=== PATIENT | male | born 1995 | race Caucasian/White ===

== ENCOUNTER 2019-01-09 14:32 | Outpatient (CLI) | payer OTHER | END 2019-01-09 14:33 | disposition EMS.NT | LOC: EMS 14:32 | PROVIDERS: ATTEND Surgery | DX: R53.1 Weakness (principal); R42 Dizziness and giddiness ==

== ENCOUNTER 2019-01-09 15:20 | Emergency (ER) | payer OTHER ==
[2019-01-09] MEDS ORDERED: SODIUM CHLORIDE 0.9% 1,000 ML IV ONE (15:27)
--- NOTE | 2019-01-09 15:29 | ED Physician Documentation ---
PD HPI SYNCOPE - Stated complaint Stated Complaint: LIGHT HEADED - History obtained from History obtained from: Patient - History of Present Illness Witnessed: Witnessed (23-year-old gentleman, otherwise healthy and active duty in the [employer]. He got a flu shot this morning, but otherwise it was normal more. A couple of hours later he was starting to feel dizzy and nauseous. He nearly passed out developed tunnel vision. Paramedics were summoned and they did note a blood pressure of 74/34 which was better after 500 mL of normal saline in route. He feels fine now. No chest pain, no trouble breathing no, pedal edema, no recent travel.) Review of Systems Constitutional: denies: Fever, Chills, Fatigue Cardiac: denies: Chest pain / pressure, Palpitations Respiratory: denies: Dyspnea, Cough GI: reports: Nausea (gone). denies: Diarrhea, Bloody / black stool PD PAST MEDICAL HISTORY - Allergies Allergies/Adverse Reactions: Allergies Allergy/AdvReac Type Severity Reaction Status Date / Time No Known Drug Allergies Allergy Verified 01/09/19 15:40 PD ED PE NORMAL - Vitals Vital signs reviewed: Yes - General General: Alert and oriented X 3, No acute distress - HEENT HEENT: PERRL, EOMI - Neck Neck: Supple, no meningeal sign, No bony TTP - Cardiac Cardiac: RRR, No murmur - Respiratory Respiratory: No respiratory distress, Clear bilaterally - Abdomen Abdomen: Non tender - Extremities Extremities: No edema, No calf tenderness / cord - Neuro Neuro: Alert and oriented X 3, Normal speech Results - Vitals Vitals: Vital Signs - 24 hr 01/09/19 01/09/19 01/09/19 15:33 16:23 16:59 Temperature 98.3 C H Heart Rate 69 84 Heart Rate [ 88 Sitting] Heart Rate [ 82 Standing] Heart Rate [ 88 Supine] Respiratory 16 16 Rate Blood Pressure 118/74 117/67 Blood Pressure 116/64 [Sitting] Blood Pressure 117/66 [Standing] Blood Pressure 116/64 [Supine] O2 Saturation 100 100 Oxygen O2 Source Room air - EKG (time done) 1544 Rate: Rate (enter#) (75) Rhythm: NSR [place]: Normal Intervals: Normal [place] QRS: Normal Ischemia: ST elevation c/w repol Computer interpretation: Agree with computer - Labs Labs: Laboratory Tests 01/09/19 01/09/19 01/09/19 15:35 15:35 15:35 WBC 10.1 RBC 4.64 L Hgb 13.6 L Hct 40.1 L MCV 86.4 MCH 29.3 MCHC 33.9 RDW 12.1 Plt Count 167 MPV 10.8 Neut # (Auto) 9.2 H Lymph # (Auto) 0.5 L [place] # (Auto) 0.3 Eos # (Auto) 0.1 Baso # (Auto) 0.0 Absolute Nucleated RBC 0.00 Nucleated RBC % 0.0 Sodium 137 Potassium 3.7 Chloride 103 Carbon Dioxide 27 Anion Gap 7.0 BUN 19 Creatinine 0.9 Estimated GFR (MDRD) 106 Glucose 109 H Lactic Acid 1.4 Calcium 9.1 Total Bilirubin 0.7 AST 25 ALT 27 Alkaline Phosphatase 56 Total Protein 6.8 Albumin 4.1 Globulin 2.7 Albumin/Globulin Ratio 1.5 Lipase 30 PD MEDICAL DECISION MAKING - ED course ED course: 23-year-old gentleman with a presyncopal episode this morning. He was hypotensive but is not now. No pertinent positive findings on work-up, negative orthostatics after IV fluids. Departure - Departure Disposition: Home, Self Care Clinical Impression: Pre-syncope, Transient hypotension Condition: Good Record reviewed to determine appropriate education?: Yes Instructions: ED Near Syncope Vasovagal Comments: Rest tonight and take it easy, return for new or worsening symptoms. Drink plenty of fluids. [place]
[2019-01-09 15:43] LABS: BASOPHILS % (AUTO) 0.2 %; EOSINOPHILS # (AUTO) 0.1 10^3/uL (0.0-0.7); EOSINOPHILS % (AUTO) 0.7 %; HGB - HEMOGLOBIN 13.6 g/dL (14.0-18.0); LYMPHOCYTES # (AUTO) 0.5 10^3/uL (1.5-3.5); LYMPHOCYTES % (AUTO) 4.8 %; MEAN CORPUSCULAR HEMOGLOBIN 29.3 pg (27.0-31.0); MEAN CORPUSCULAR HGB CONC 33.9 g/dL (32.0-36.0); MEAN CORPUSCULAR VOLUME 86.4 fL (80.0-94.0); MEAN PLATELET VOLUME 10.8 fL (7.4-11.4); MONOCYTES # (AUTO) 0.3 10^3/uL (0.0-1.0); MONOCYTES % (AUTO) 2.9 %; NEUTROPHILS # (AUTO) 9.2 10^3/uL (1.5-6.6); NEUTROPHILS % (AUTO) 90.8 %; PLT - PLATELET COUNT 167 10^3/uL (130-450); RED BLOOD COUNT 4.64 10^6/uL (4.70-6.10); RED CELL DISTRIBUTION WIDTH 12.1 % (12.0-15.0); WHITE BLOOD COUNT 10.1 x10^3/uL (4.8-10.8)
[2019-01-09 15:50] LABS: ALBUMIN 4.1 g/dL (3.2-5.5); ALBUMIN/GLOBULIN RATIO 1.5 (1.0-2.2); BILIRUBIN,TOTAL 0.7 mg/dL (0.2-1.0); CALCIUM 9.1 mg/dL (8.5-10.3); CREATININE 0.9 mg/dL (0.6-1.2); TOTAL PROTEIN 6.8 g/dL (6.7-8.2)
[2019-01-09 16:59] VITALS: BP 116/64
[2019-01-09 17:49] LABS: BILIRUBIN,URINE NEGATIVE (NEGATIVE); GLUCOSE, URINE (UA) NEGATIVE (NEGATIVE); KETONES,URINE (UA) NEGATIVE (NEGATIVE); LEUKOCYTE ESTERASE, URINE NEGATIVE (NEGATIVE); NITRITE,URINE NEGATIVE (NEGATIVE); OCCULT BLOOD,URINE NEGATIVE (NEGATIVE); PROTEIN,URINE NEGATIVE (NEGATIVE); UROBILINOGEN,URINE 0.2 (NORMAL) E.U./dL (NORMAL)
[2019-01-09 17:50] LABS: CLARITY,URINE HAZY (CLEAR)
[2019-01-09 18:00] LABS: AMORPHOUS SEDIMENT,UR Few /LPF; BACTERIA,URINE Rare /HPF (None Seen); RBC,URINE 0-5 /HPF (0-5); SQUAMOUS EPITHELIAL CELL,UR NONE SEEN (<= Few)
[2019-01-09 18:01] LABS: CASTS, URINE 3-5 Hyaline Casts /LPF
== END 2019-01-09 17:44 | disposition home or self-care (01) ==
LOC: ED 15:20
DX: I95.89 Other hypotension (principal); R55 Syncope and collapse
CPT/HCPCS: 36415; 80053; 81001; 81003; 83605; 83690; 85025; 87086; 93005; 99284

== ENCOUNTER 2019-10-14 09:07 | Emergency (ER) | payer OTHER ==
--- NOTE | 2019-10-14 10:05 | XRAY Report ---
PROCEDURE: Foot 3 View RT INDICATIONS: injury TECHNIQUE: 3 views of the foot were acquired. COMPARISON: None FINDINGS: Bones: No fractures or dislocations. No suspicious bony lesions. Soft tissues: No tibiotalar joint effusion. Achilles tendon appears normal. IMPRESSION: No definite fracture however follow-up radiographs in 10 days could be performed if the patient's sym ptoms do not improve to exclude occult fracture/assess for healing sclerosis. Reviewed by: Fawad Craft MD on 10/14/2019 10:04 AM PDT Approved by: Fawad Craft MD on 10/14/2019 10:04 AM PDT Station ID: [id number]
--- NOTE | 2019-10-14 10:29 | ED Physician Documentation ---
PD HPI LOWER EXT INJURY - Stated complaint Stated Complaint: R FOOT PX - Chief complaint Chief Complaint: Trauma Ext - History obtained from History obtained from: Patient - History of Present Illness PD HPI LOW EXT INJURY LOCATION: Right, Toe (2nd) Type of injury: Other (bent on a stair) Where injury occurred: Home Timing - onset: How many days ago (2) Timing - duration: Days (2) Timing - details: Abrupt onset Pain level max: 5 Pain level now: 1 Improved by: Rest Worsened by: Moving, Palpating Associated symptoms: Swelling, Discolored (bruising). No: Weakness, Numbness, Tingling - Additional information Additional information: Patient tripped on a stair and bent his toe backwards. Bruising today. Sent by [employer] Review of Systems Constitutional: denies: Fever Musculoskeletal: denies: Neck pain, Back pain Neurologic: denies: Head injury PD PAST MEDICAL HISTORY - Past Medical History Past Medical History: No Cardiovascular: None Respiratory: None Neuro: None GI: None : None HEENT: None Psych: None Musculoskeletal: None - Past Surgical History Past Surgical History: Yes General: Other - Present Medications Home Medications: Ambulatory Orders Medication Instructions Recorded Confirmed No Known Home Medications 10/14/19 10/14/19 - Allergies Allergies/Adverse Reactions: Allergies Allergy/AdvReac Type Severity Reaction Status Date / Time No Known Drug Allergies Allergy Verified 01/09/19 15:40 - Social History Does the pt smoke?: No Smoking Status: Never smoker Does the pt have substance abuse?: No - Immunizations Immunizations are current?: Yes - POLST Patient has POLST: No PD ED PE NORMAL - Vitals Vital signs reviewed: Yes - General General: Alert and oriented X 3, No acute distress - Derm Derm: Warm and dry - Extremities Extremities: Other (Ecchymosis and swelling to the right foot, second toe. Minimal tenderness. Neurovascular intact. Normal nail) - Neuro Neuro: Alert and oriented X 3 Results - Vitals Vitals: Vital Signs - 24 hr 10/14/19 10/14/19 09:34 10:35 Temperature 36.8 C Heart Rate 55 L 52 L Respiratory 16 18 Rate Blood Pressure 116/78 111/78 O2 Saturation 100 99 Oxygen O2 Source Room air - Rads (name of study) Right foot x-ray Radiology: Prelim report reviewed, EMP read contemporaneously, See rad report (Normal) PD MEDICAL DECISION MAKING - ED course Complexity details: reviewed results, considered differential, d/w patient ED course: No acute findings on x-ray. We will treat as a toe sprain. Patient declines hailey taping or a hard soled shoe. Patient counseled regarding signs and symptoms for which I believe and urgent re-evaluation would be necessary. Patient with good understanding of and agreement to plan and is comfortable going home at this time This document was made in part using voice recognition software. While efforts are made to proofread this document, sound alike and grammatical errors may occur. Departure - Departure Disposition: Home, Self Care Clinical Impression: Sprain of toe Qualifiers: Encounter type: initial encounter Qualified Code(s): S93.509A - Unspecified sprain of unspecified toe(s), initial encounter Condition: Good Instructions: ED Sprain Toe Follow-Up: Your,doctor in 1 week [Other] Comments: Your x-rays do not show any acute fractures. You can bear weight as tolerated. Follow-up with your doctor for further care. Discharge Date/Time: 10/14/19 10:48
[2019-10-14 10:36] VITALS: BP 111/78
== END 2019-10-14 10:48 | disposition home or self-care (01) ==
LOC: ED 09:07
DX: S93.504A Unspecified sprain of right lesser toe(s), initial encounter (principal); S90.121A Contusion of right lesser toe(s) without damage to nail, initial encounter; X50.1XXA Overexertion from prolonged static or awkward postures, initial encounter; Y93.01 Activity, walking, marching and hiking
CPT/HCPCS: 99283

== ENCOUNTER 2020-10-21 16:44 | Emergency (ER) | payer OTHER ==
--- NOTE | 2020-10-21 17:34 | ED Physician Documentation ---
PD HPI UPPER EXT INJURY - Stated complaint Stated Complaint: LT ARM INJ - Chief complaint Chief Complaint: Trauma Ext - History obtained from History obtained from: Patient - Additonal information Additional information: Right-handed gentleman had a FOOSH injury and hurt his nondominant/left wrist and elbow just prior to arrival. No other injuries. Declines pain medication. Review of Systems Constitutional: reports: Reviewed and negative Eyes: reports: Reviewed and negative Ears: reports: Reviewed and negative Nose: reports: Reviewed and negative PD PAST MEDICAL HISTORY - Past Medical History Cardiovascular: None Respiratory: None Neuro: None GI: None : None HEENT: None Psych: None Musculoskeletal: None - Past Surgical History Past Surgical History: Yes General: Other - Present Medications Home Medications: Ambulatory Orders Medication Instructions Recorded Confirmed No Known Home Medications 10/14/19 10/21/20 - Allergies Allergies/Adverse Reactions: Allergies Allergy/AdvReac Type Severity Reaction Status Date / Time No Known Drug Allergies Allergy Verified 10/21/20 17:02 - Social History Does the pt smoke?: No Smoking Status: Never smoker Does the pt have substance abuse?: No - Immunizations Immunizations are current?: Yes - POLST Patient has POLST: No PD ED PE NORMAL - Vitals Vital signs reviewed: Yes - General General: Alert and oriented X 3, No acute distress - Extremities Extremities: Other (Wrist is nontender with slightly limited range of motion due to pain. No snuffbox tenderness or pain with axial loading of the thumb. Left elbow is tender and has a palpable effusion, the tenderness seems to be on the lateral side.) - Neuro Neuro: Alert and oriented X 3, Normal speech Results - Vitals Vitals: Vital Signs - 24 hr 10/21/20 10/21/20 17:02 17:44 Temperature 36.8 C 37.1 C Heart Rate 66 64 Respiratory 16 20 Rate Blood Pressure 135/82 H 122/79 O2 Saturation 99 100 Oxygen O2 Source Room air - Rads (name of study) Left wrist and elbow x-ray: Wrist is normal, elbow is notable for radial neck fracture with large joint effusion. Radiology: EMP read contemporaneously Departure - Departure Disposition: 01 Home, Self Care Clinical Impression: Left wrist sprain Qualifiers: Encounter type: initial encounter Qualified Code(s): S63.502A - Unspecified sprain of left wrist, initial encounter Radial head fracture Qualifiers: Encounter type: initial encounter Fracture type: closed Fracture alignment: nondisplaced Laterality: left Qualified Code(s): S52.125A - Nondisplaced fracture of head of left radius, initial encounter for closed fracture Condition: Good Record reviewed to determine appropriate education?: Yes Instructions: ED Fx Radial Head Comments: Tylenol and/or ibuprofen as needed for pain. [place] of [place] the [place], call tomorrow for an appointment. Wear the sling until you see the orthopedic surgeon. Forms: Activity restrictions
--- NOTE | 2020-10-21 17:35 | XRAY Report ---
PROCEDURE: Elbow 3 View LT INDICATIONS: Trauma TECHNIQUE: 3 views of the elbow were acquired. COMPARISON: None FINDINGS: Bones: Radial neck fracture. No dislocation. No suspicious bony lesions. Soft tissues: Large elbow joint effusion. No suspicious soft tissue calcifications. IMPRESSION: Radial neck fracture associated with large elbow joint effusion. Reviewed by: Diogo Lemons MD on 10/21/2020 5:33 PM PDT Approved by: Diogo Lemons MD on 10/21/2020 5:33 PM PDT Station ID: [id number]
--- NOTE | 2020-10-21 17:35 | XRAY Report ---
PROCEDURE: Wrist 4 View LT INDICATIONS: Trauma TECHNIQUE: 4 views of the wrist were acquired. COMPARISON: None FINDINGS: Bones: No fractures or dislocations. No suspicious bony lesions. Scaphoid view: Scaphoid intact Soft tissues: No suspicious soft tissue calcifications. IMPRESSION: No evidence acute bony abnormality of the left wrist. If clinical suspicion and/or symptoms persist, further assessment with repeat plain films or advanced imaging (e.g., CT, MRI, or bone scan) may be helpful for further assessment. Reviewed by: Diogo Lemons MD on 10/21/2020 5:34 PM PDT Approved by: Diogo Lemons MD on 10/21/2020 5:34 PM PDT Station ID: [id number]
[2020-10-21 17:45] VITALS: BP 122/79
== END 2020-10-21 17:54 | disposition home or self-care (01) ==
LOC: ED 16:44
DX: S52.125A Nondisplaced fracture of head of left radius, initial encounter for closed fracture (principal); S63.502A Unspecified sprain of left wrist, initial encounter; V00.131A Fall from skateboard, initial encounter; Y93.51 Activity, roller skating (inline) and skateboarding
CPT/HCPCS: 99283

== ENCOUNTER 2020-11-12 18:28 | Outpatient (CLI) | payer OTHER ==
--- NOTE | 2020-11-12 18:09 | XRAY Report ---
PROCEDURE: Elbow 3 View LT INDICATIONS: NONDISPLACED FX OF NECK OF L RADIUS TECHNIQUE: 3 views of the elbow were acquired. COMPARISON: Prior elbow series dated October 21, 2020 FINDINGS: Bones: Further healing of radial head fracture with fracture lucency is less distinct alignment is un changed.. No suspicious bony lesions. Soft tissues: No elbow joint effusion. No suspicious soft tissue calcifications. IMPRESSION: Further healing of radial head fracture. Reviewed by: JOHANA Acevedo on 11/12/2020 6:08 PM PDT Approved by: Saroj Ferguson on 11/12/2020 6:08 PM PDT Station ID: [id number]
== END 2020-11-12 23:59 | disposition home or self-care (01) ==
LOC: DI.N 18:28
PROVIDERS: ATTEND Physician Assistant
DX: S52.125D Nondisplaced fracture of head of left radius, subsequent encounter for closed fracture with routine healing (principal)

== ENCOUNTER 2020-12-10 08:00 | Outpatient (CLI) | payer OTHER ==
--- NOTE | 2020-12-10 12:42 | XRAY Report ---
PROCEDURE: Elbow 3 View LT INDICATIONS: FRACTURE OF NECK OF LEFT RADIUS TECHNIQUE: 3 views of the elbow were acquired. COMPARISON: X-ray elbow 11/12/2020, 10/21/2020 FINDINGS: Bones: Stable alignment and continued interval healing of proximal radial fracture. Minimal appearanc e of fracture lucencies persist. No suspicious bony lesions. Soft tissues: No elbow joint effusion. No suspicious soft tissue calcifications. IMPRESSION: Stable alignment with continued healing of proximal radial head fracture. Reviewed by: Donna Bradford MD on 12/10/2020 12:41 PM PDT Approved by: Donna Bradford MD on 12/10/2020 12:41 PM PDT Station ID: [id number]
== END 2020-12-10 23:59 | disposition home or self-care (01) ==
LOC: DI.N 08:00
PROVIDERS: ATTEND Physician Assistant
DX: S52.135D Nondisplaced fracture of neck of left radius, subsequent encounter for closed fracture with routine healing (principal)

== ENCOUNTER 2022-08-29 08:21 | Emergency (ER) | payer OTHER ==
[2022-08-29 08:31] VITALS: BP 125/70
--- NOTE | 2022-08-29 08:36 | ED Physician Documentation ---
PD HPI LOWER EXT INJURY - Stated complaint Stated Complaint: LT TOE PX - Chief complaint Chief Complaint: Trauma Ext - History obtained from History obtained from: Patient - History of Present Illness PD HPI LOW EXT INJURY LOCATION: Left ([place] and injured the left third toe. No other injuries.) PD PAST MEDICAL HISTORY - Past Medical History Past Medical History: No Cardiovascular: None Respiratory: None Neuro: None Endocrine/Autoimmune: None GI: None : None HEENT: None Psych: None Musculoskeletal: None Derm: None - Past Surgical History Past Surgical History: Yes General: Other - Present Medications Home Medications: Ambulatory Orders Medication Instructions Recorded Confirmed Sertraline HCl 100 mg PO DAILY 08/29/22 08/29/22 - Allergies Allergies/Adverse Reactions: Allergies Allergy/AdvReac Type Severity Reaction Status Date / Time No Known Drug Allergies Allergy Verified 08/29/22 08:26 - Social History Does the pt smoke?: No Smoking Status: Never smoker Does the pt drink ETOH?: Yes Does the pt have substance abuse?: No - Immunizations Immunizations are current?: Yes - POLST Patient has POLST: No PD ED PE NORMAL - Vitals Vital signs reviewed: Yes - General General: Alert and oriented X 3, No acute distress - Extremities Extremities: Other (The left third toe is bruised and swollen and tender at the DIP. Not the PIP or proximally. No deformity.) - Neuro Neuro: Alert and oriented X 3, Normal speech Results - Vitals Vitals: Vital Signs - 24 hr 08/29/22 08:27 Temperature 36.5 C Heart Rate 58 L Respiratory 16 Rate Blood Pressure 125/70 O2 Saturation 100 Oxygen O2 Source Room air - Rads (name of study) Three-view x-ray of left third toe demonstrates dorsal PIP avulsion fracture Relevant Findings:: Final report received, EMP independent interpretation of test PD Medical Decision Making - ED course ED course: 26-year-old with isolated injury of left third toe with PIP avulsion fracture. He was hailey taped and counseled on expected course of healing and follow-up. Departure - Departure Disposition: 01 Home, Self Care Clinical Impression: Toe fracture, left Qualifiers: Encounter type: initial encounter Toe: lesser toe Fracture type: closed Phalanx: distal Fracture alignment: nondisplaced Qualified Code(s): S92.535A - Nondisplaced fracture of distal phalanx of left lesser toe(s), initial encounter for closed fracture Condition: Good Record reviewed to determine appropriate education?: Yes Instructions: ED Fx Toe Closed Comments: Follow-up with your flight surgeon in about a week for recheck. In the interim hailey tape as shown and wear supportive shoes. Tylenol and/or ibuprofen as needed for pain. Return for new or worsening symptoms. Discharge Date/Time: 08/29/22 08:58
--- NOTE | 2022-08-29 08:52 | XRAY Report ---
PROCEDURE: Toe(s) LT INDICATIONS: Toe injury TECHNIQUE: 3 views of the third toe(s) acquired. COMPARISON: None. FINDINGS: Bones: Question avulsion fracture in the dorsal aspect of the third distal phalanx. No dislocations. No suspicious bony lesions. Soft tissues: No suspicious soft tissue densities. Soft tissue swelling of the third toe. IMPRESSION: 1. Suspect an avulsion fracture at the dorsal aspect of the third DIP. Reviewed by: Kristine Power MD on 08/29/2022 8:51 AM PDT Approved by: Kristine Power MD on 08/29/2022 8:51 AM PDT Station ID: [id number]
== END 2022-08-29 08:58 | disposition home or self-care (01) ==
LOC: ED 08:21
DX: S92.535A Nondisplaced fracture of distal phalanx of left lesser toe(s), initial encounter for closed fracture (principal); W22.8XXA Striking against or struck by other objects, initial encounter; Y92.832 Beach as the place of occurrence of the external cause
CPT/HCPCS: 73660; 99283

== ENCOUNTER 2022-09-26 12:46 | Outpatient (CLI) | payer OTHER ==
--- NOTE | 2022-09-27 12:37 | MRI Report ---
PROCEDURE: ELBOW WO - LT INDICATIONS: LEFT ELBOW PAIN TECHNIQUE: Noncontrast coronal proton density fast spin echo and T2 fast spin echo with fat saturation, axial an d sagittal T1 spin echo and T2 fast spin echo with fat saturation through the elbow. COMPARISON: Left elbow radiographs 12/10/2020 FINDINGS: Image quality: Excellent. Lateral structures: The lateral ulnar collateral ligament and radial collateral ligament both appear intact. The overlying common extensor tendon demonstrates mild tendinosis. Medial structures: The ulnar collateral ligament appears intact. The overlying common flexor tendon appears normal. The ulnar nerve appears normal in size and signal within the cubital tunnel. Anterior structures: The biceps and brachialis tendons both appear intact as they insert onto the pr oximal radius and ulna, respectively. No bicipitoradial bursal fluid. The median and radial neurova scular bundles appear normal; no focal muscle atrophy to suggest nerve impingement. Posterior structures: The triceps tendon appears intact. No olecranon bursal fluid. Bone and cartilage: Previously seen radial neck fracture appears healed with minimal residual osseou s deformity. No bone marrow contusions or fractures. No osteochondral injuries. IMPRESSION: 1.Healed radial neck fracture is seen with minimal residual deformity. No acute trabecular bone injur y. 2.Mild common extensor tendinosis. No significant ligament or tendon tear is seen. Reviewed by: Bruno Lucas MD on 09/27/2022 12:36 PM PDT Approved by: Bruno Lucas MD on 09/27/2022 12:36 PM PDT Station ID: [id number]
== END 2022-09-26 12:47 | disposition home or self-care (01) ==
LOC: DI 12:46
PROVIDERS: ATTEND General Practice
DX: M67.922 Unspecified disorder of synovium and tendon, left upper arm (principal)